=== PATIENT | male | born 1980 | race Caucasian/White ===

== ENCOUNTER 2020-09-01 19:02 | Emergency (ER) | payer BC ==
[2020-09-01] MEDS ORDERED: Bacitracin Oint 1 GM U/D Packet TOP ONE (19:22)
[2020-09-01] MEDS ORDERED: Diphtheria,Pertussis(Acell),Tetanus Vaccine 0.5 ML Syringe IM ONE (19:24)
--- NOTE | 2020-09-01 19:46 | EDM.PDOC ---
ED HPI GENERAL MEDICAL PROBLEM - General Chief Complaint: Laceration Stated Complaint: CUT END OF FINGER L HAND Time Seen by Provider: 09/01/20 19:22 Source of Information: Reports: Patient History Limitations: Reports: No Limitations - History of Present Illness INITIAL COMMENTS - FREE TEXT/NARRATIVE: Ean is a 40-year-old male presenting to the ED for a laceration to his left index finger. Patient was chopping wood while camping on [facility] on [facility] and caught the edge of the hatchet on his finger causing a laceration. He is unknown as far as his last tetanus booster. There is nothing in [facility] database for him. Therefore, we will booster his Tdap today. He denies any distal numbness or tingling, there is no decreased range of motion, and the nailbed is not involved. - Related Data Allergies Allergy/AdvReac Type Severity Reaction Status Date / Time No Known Allergies Allergy Verified 09/01/20 19:30 Home Meds: Home Meds NK [No Known Home Meds] 09/01/20 [History] Past Medical History - Infectious Disease History Infectious Disease History: Reports: Chicken Pox Social & Family History - Tobacco Use Tobacco Use Status *Q: Never Tobacco User - Recreational Drug Use Recreational Drug Use: No ED ROS GENERAL - Review of Systems Review Of Systems: See Below Constitutional: Reports: No Symptoms Musculoskeletal: Reports: Hand Pain (2.2 cm laceration left index finger) Skin: Reports: Wound (2.2 cm laceration left index finger) Neurological: Reports: No Symptoms ED EXAM, SKIN/RASH Exam: See Below Exam Limited By: No Limitations General Appearance: Alert, No Apparent Distress Extremities: Normal Range of Motion, Normal Capillary Refill, Other (2.2 cm laceration on the medial left index finger not involving nail bed. No foreign bodies were identified after examining the finger down to the base in bloodless field. The wound was scrubbed out using soap and water.) Neurological: Alert, Oriented, Normal Cognition, No Motor/Sensory Deficits ED SKIN PROCEDURES - Laceration/Wound Repair Left Distal Digit - 2nd (Index) Appearance: Subcutaneous Distal NVT: Neuro & Vascular Intact Anesthetic Type: Local Local Anesthesia - Lidocaine (Xylocaine): 1% Plain Local Anesthetic Volume: 2cc Skin Prep: Other (Soap and water) Exploration/Debridement/Repair: Wound Explored, In a Bloodless Field, Explored to Base Closed with: Sutures Lac/Wound length In cm: 2.2 Suture Size: 4-0 # of Sutures: 6 Suture Type: Nylon, Interrupted Sterile Dressing Applied: Provider Tetanus Status Addressed: Yes Complications: No Course - Vital Signs Last Recorded V/S: Last Vital Signs Temp 36.4 C 09/01/20 19:36 Pulse 60 09/01/20 19:36 Resp 16 09/01/20 19:36 BP 161/102 H 09/01/20 19:43 Pulse Ox 99 09/01/20 19:36 - Orders/Labs/Meds Orders: Active Orders 24 hr Category Date Time Status Vaccines to be Administered [RC] PER UNIT ROUTINE Care 09/01/20 19:24 Active Meds: Medications Discontinued Medications Generic Name Dose Route Start Last Admin Trade Name Vinny PRN Reason Stop Dose Admin Bacitracin 1 dose 09/01/20 19:22 09/01/20 19:28 Bacitracin Oint 1 Gm U/D Packet TOP 09/01/20 19:23 1 dose ONETIME ONE Administration Diphtheria/Tetanus/Acell Pertussis 0.5 ml 09/01/20 19:24 09/01/20 19:28 Diphtheria,Pertussis(Acell),Tetanus Vaccine 0.5 Ml Syringe IM 09/01/20 19:25 0.5 ml .ONCE ONE Administration Lidocaine HCl 5 ml 09/01/20 19:22 09/01/20 19:29 Lidocaine 1% 5 Ml Sdv INJECT 09/01/20 19:23 5 ml ONETIME ONE Administration - Re-Assessments/Exams Free Text/Narrative Re-Assessment/Exam: 09/01/20 19:49 Ean is a 40-year-old with laceration on the medial aspect of the left distal index finger that occurred while he was chopping wood with an ax. The ax was relatively new and at 1 point the edge came in contact with his left finger causing a 2.2 cm laceration. Patient has intact range of motion of the finger and there is no loss of sensation in the distal aspect of the finger. He did apply Neosporin and a dressing prior to coming in. The wound was uncovered and washed out with soap and water. The wound was then anesthetized using 1% lidocaine requiring 2 cc. The wound was close approximated and closed using 4-0 Ethilon requiring 6 simple interrupted sutures. There were no complications. Patient tolerated procedure well. A light coating bacitracin was applied and a [employer] dressing was placed over this covered by tube gauze which was then secured by tying a knot. Patient will need to have the sutures removed in 7 to 10 days. We will put him on cephalexin 500 mg 3 times daily to prevent infection as he is camping and has less than ideal hygiene availability. This was sent out to the [employer] [facility]. Reasons to return to the ED were discussed and all questions were answered prior to discharge. Departure - Departure Time of Disposition: 19:41 Disposition: Home, Self-Care 01 Clinical Impression: Laceration of left index finger Qualifiers: Encounter type: initial encounter Damage to nail status: without damage Foreign body presence: without foreign body Qualified Code(s): S61.211A - Laceration without foreign body of left index finger without damage to nail, initial encounter - Discharge Information Instructions: Laceration Care, Adult Referrals: PCP,None [Primary Care Provider] - Forms: ED Department Discharge Care Plan Goals: Please keep the wound clean and dry for the next 24 hours, after which you may get it wet. I am putting you on an antibiotic called cephalexin 1 capsule 3 times a day for 5 days to prevent infection as you are camping and have less than ideal hand hygiene situation. The sutures will need to be removed in 7 to 10 days. This can be done at your local providers office or you may return to the ED for removal. Watch for signs of infection including increased redness, increased pain, increased heat, and / or discharge of pus. Enjoy your camping out at [facility]. May your days [place] you [place]. Sepsis Event Note (ED) - Evaluation Sepsis Screening Result: No Definite Risk - Focused Exam Vital Signs: Vital Signs Temp Pulse Resp BP Pulse Ox 09/01/20 19:43 161/102 H 09/01/20 19:36 36.4 C 60 16 158/101 H 99 09/01/20 19:20 36.4 C 60 16 158/101 H 99 - Problem List & Annotations (1) Laceration of left index finger SNOMED Code(s): 39869056238756873 Code(s): S61.211A - LACERATION W/O FB OF L IDX FNGR W/O DAMAGE TO NAIL, INIT Status: Acute Priority: Medium Current Visit: Yes Qualifiers: Encounter type: initial encounter Damage to nail status: without damage Foreign body presence: without foreign body Qualified Code(s): S61.211A - Laceration without foreign body of left index finger without damage to nail, initial encounter - Problem List Review Problem List Initiated/Reviewed/Updated: Yes - My Orders Last 24 Hours: My Active Orders 09/01/20 19:24 Vaccines to be Administered [RC] PER UNIT ROUTINE - Assessment/Plan Last 24 Hours: My Active Orders 09/01/20 19:24 Vaccines to be Administered [RC] PER UNIT ROUTINE
== END 2020-09-01 20:00 | disposition home or self-care (01) ==
LOC: JP.ED 19:02
DX: S61.211A Laceration without foreign body of left index finger without damage to nail, initial encounter (principal); Z23 Encounter for immunization; W26.8XXA Contact with other sharp object(s), not elsewhere classified, initial encounter
CPT/HCPCS: 12001; 90471; 90715; 99282-25